=== PATIENT | male | born 1970 | race African-American/Black ===

== ENCOUNTER 2020-12-11 10:04 | Outpatient (CLI) | payer SELFPAY | END 2020-12-11 10:05 | disposition home or self-care (01) | LOC: WOUND 10:13 | PROVIDERS: Visit Provider Thoracic Surgery (Cardiothoracic Vascular Surgery) | DX: L97.822 Non-pressure chronic ulcer of other part of left lower leg with fat layer exposed (principal) | CPT/HCPCS: 11042; 11045; 87070; 87176; 87205; 99203 ==

== ENCOUNTER 2021-02-06 10:00 | Outpatient (CLI) | payer SELFPAY | END 2021-02-06 10:01 | disposition home or self-care (01) | LOC: WOUND 10:03 | PROVIDERS: Visit Provider Nurse Practitioner Family | DX: L97.821 Non-pressure chronic ulcer of other part of left lower leg limited to breakdown of skin (principal) | CPT/HCPCS: 87070; 87176; 87205; G0463 ==

== ENCOUNTER 2021-02-10 09:54 | Outpatient (CLI) | payer SELFPAY | END 2021-02-10 09:55 | disposition home or self-care (01) | LOC: WOUND 09:55 | PROVIDERS: Visit Provider Nurse Practitioner Family | DX: L97.822 Non-pressure chronic ulcer of other part of left lower leg with fat layer exposed (principal) | CPT/HCPCS: 11042; 11045 ==

== ENCOUNTER 2021-02-17 09:42 | Outpatient (CLI) | payer SELFPAY | END 2021-02-17 09:43 | disposition home or self-care (01) | LOC: WOUND 09:42 | PROVIDERS: Visit Provider Nurse Practitioner Family | DX: I73.9 Peripheral vascular disease, unspecified (principal); L97.822 Non-pressure chronic ulcer of other part of left lower leg with fat layer exposed | CPT/HCPCS: 11042; 11045 ==

== ENCOUNTER 2021-02-20 08:09 | Outpatient (CLI) | payer SELFPAY | END 2021-02-20 08:10 | disposition home or self-care (01) | LOC: WOUND 08:10 | PROVIDERS: Visit Provider Nurse Practitioner Family | DX: L97.822 Non-pressure chronic ulcer of other part of left lower leg with fat layer exposed (principal) | CPT/HCPCS: 29581 ==

== ENCOUNTER 2021-02-27 10:47 | Outpatient (CLI) | payer SELFPAY | END 2021-02-27 10:48 | disposition home or self-care (01) | LOC: WOUND 10:48 | PROVIDERS: Visit Provider Nurse Practitioner Family | DX: I73.9 Peripheral vascular disease, unspecified (principal); L97.822 Non-pressure chronic ulcer of other part of left lower leg with fat layer exposed | CPT/HCPCS: 11042 ==

== ENCOUNTER 2021-03-06 10:13 | Outpatient (CLI) | payer SELFPAY | END 2021-03-06 10:14 | disposition home or self-care (01) | LOC: WOUND 10:13 | PROVIDERS: Visit Provider Thoracic Surgery (Cardiothoracic Vascular Surgery) | DX: L97.822 Non-pressure chronic ulcer of other part of left lower leg with fat layer exposed (principal) | CPT/HCPCS: 29581 ==

== ENCOUNTER 2021-03-13 10:05 | Outpatient (CLI) | payer SELFPAY | END 2021-03-13 10:06 | disposition home or self-care (01) | LOC: WOUND 10:05 | PROVIDERS: Visit Provider Nurse Practitioner Family | DX: I73.9 Peripheral vascular disease, unspecified (principal); L97.822 Non-pressure chronic ulcer of other part of left lower leg with fat layer exposed | CPT/HCPCS: 11042 ==

== ENCOUNTER 2021-03-31 10:44 | Outpatient (CLI) | payer SELFPAY | END 2021-03-31 10:45 | disposition home or self-care (01) | LOC: WOUND 10:44 | PROVIDERS: Visit Provider Nurse Practitioner Family | DX: I73.9 Peripheral vascular disease, unspecified (principal); L97.822 Non-pressure chronic ulcer of other part of left lower leg with fat layer exposed | CPT/HCPCS: 11042; 11045 ==

== ENCOUNTER 2021-04-10 09:13 | Outpatient (CLI) | payer SELFPAY | END 2021-04-10 09:14 | disposition home or self-care (01) | LOC: WOUND 09:13 | PROVIDERS: Visit Provider Nurse Practitioner Family | DX: I73.9 Peripheral vascular disease, unspecified (principal); L97.822 Non-pressure chronic ulcer of other part of left lower leg with fat layer exposed | CPT/HCPCS: 11042 ==

== ENCOUNTER 2021-04-17 09:59 | Outpatient (CLI) | payer SELFPAY | END 2021-04-17 10:00 | disposition home or self-care (01) | LOC: WOUND 10:01 | PROVIDERS: Visit Provider Nurse Practitioner Family | DX: I73.9 Peripheral vascular disease, unspecified (principal); L97.822 Non-pressure chronic ulcer of other part of left lower leg with fat layer exposed | CPT/HCPCS: 11042 ==

== ENCOUNTER 2021-04-24 09:31 | Outpatient (CLI) | payer SELFPAY | END 2021-04-24 09:32 | disposition home or self-care (01) | LOC: WOUND 09:32 | PROVIDERS: Visit Provider Nurse Practitioner Family | DX: I73.9 Peripheral vascular disease, unspecified (principal); L97.821 Non-pressure chronic ulcer of other part of left lower leg limited to breakdown of skin | CPT/HCPCS: 11042 ==

== ENCOUNTER 2021-05-08 09:37 | Outpatient (CLI) | payer SELFPAY | END 2021-05-08 09:38 | disposition home or self-care (01) | LOC: WOUND 09:38 | PROVIDERS: Visit Provider Nurse Practitioner Family | DX: I73.9 Peripheral vascular disease, unspecified (principal); L97.821 Non-pressure chronic ulcer of other part of left lower leg limited to breakdown of skin | CPT/HCPCS: 11042 ==

== ENCOUNTER 2021-05-22 09:23 | Outpatient (CLI) | payer SELFPAY | END 2021-05-22 09:24 | disposition home or self-care (01) | LOC: WOUND 09:24 | PROVIDERS: Visit Provider Emergency Medicine | DX: I73.9 Peripheral vascular disease, unspecified (principal); L97.822 Non-pressure chronic ulcer of other part of left lower leg with fat layer exposed | CPT/HCPCS: 11042 ==

== ENCOUNTER 2021-06-05 09:03 | Outpatient (CLI) | payer SELFPAY | END 2021-06-05 09:04 | disposition home or self-care (01) | LOC: WOUND 09:04 | PROVIDERS: Visit Provider Nurse Practitioner Family | DX: I73.9 Peripheral vascular disease, unspecified (principal); L97.822 Non-pressure chronic ulcer of other part of left lower leg with fat layer exposed | CPT/HCPCS: 11042 ==

== ENCOUNTER 2021-06-19 09:16 | Outpatient (CLI) | payer SELFPAY | END 2021-06-19 09:17 | disposition home or self-care (01) | LOC: WOUND 09:16 | PROVIDERS: Visit Provider Emergency Medicine | DX: I73.9 Peripheral vascular disease, unspecified (principal); L97.822 Non-pressure chronic ulcer of other part of left lower leg with fat layer exposed | CPT/HCPCS: 11042 ==

== ENCOUNTER 2021-07-03 09:14 | Outpatient (CLI) | payer SELFPAY | END 2021-07-03 09:15 | disposition home or self-care (01) | LOC: WOUND 09:14 | PROVIDERS: Visit Provider Emergency Medicine | DX: I73.9 Peripheral vascular disease, unspecified (principal); L97.821 Non-pressure chronic ulcer of other part of left lower leg limited to breakdown of skin | CPT/HCPCS: 29581; A6021 ==

== ENCOUNTER 2025-05-27 17:23 | Emergency (ER) | payer OTHER, SELFPAY ==
--- OUTSIDE RECORDS SUMMARY | 2018-08-23 19:00 | XMS_ITS | Continuity of Care Document ---
Author Organization [employer] Address [address] [place] [address] Phone Care Team Providers Care Tank Hoop Bender Name Role Phone Julio César Dejesus MD Unavailable Unavailable Procedures Procedure Date OFFICE/OUTPATIENT VISIT, NEW Advance Directives Directive Yes / No Effective Date File Name No Information Encounters Encounter Description Practice Location Reason(s) For Visit Diagnoses Date Provider Providers Copied on Encounter OFFICE/OUTPAT IENT VISIT, [facility], [address], [place], [place], [id number], tel:[phone] Amadou Borden No Information Oleg Angela. [address], [facility], . tel:[phone] Referring Provider: Julio César Dejesus, [address] [place] [address], [facility]. tel:[phone] Family History Family Member Type Diagnosis Age At Onset No Information Payers Payer name Insurance type Covered republican ID Authoriza tion(s) No Information Social History Type Description Quantity Date Captured Comments Sex Male Smoking Status No Information Chief Complaint And Reason For Visit No Information Reason For Referral Reason For Referral No Information History Of Present Illness Encounter Date Complaint History Of Prese nt Illness No Information Functional Status Date Functional Assessmen t No Information Instructions Date Instruction Additional Infor mation No Information Assessments Type Assessment Date No Information Patient Care Teams Name Effective Dates (start - stop) Status Members No Information
[2025-05-27 17:55] VITALS: BP 146/99; PULSE 93; RESP 16; O2SAT 97
--- NOTE | 2025-05-27 18:49 | XRR_ITS ---
PROCEDURE INFORMATION: Exam: XR Right Hand Exam date and time: 05/27/2025 7:12 PM Age: 54 years old Clinical indication: Injury or trauma; Puncture; Dog bite to posterior aspect of right hand; Additional info: Animal bite TECHNIQUE: Imaging protocol: Radiologic exam of the right hand. Views: 3 or more views. COMPARISON: No relevant prior studies available. FINDINGS: Bones/joints: Normal. Soft tissues: Unremarkable. XR/XR hand RT min 3V* [id number] IMPRESSION: No acute findings.
--- NOTE | 2025-05-27 18:49 | W.ED.ANIMALB ---
HPI - Animal Bite General: Chief Complaint: Animal Bite Stated Complaint: rt hand animal bite Related Data Previous Rx's ?Medication ?Instructions ?Recorded sulfamethoxazole 800 1 tab PO BID #14 tabs 01/15/25 mg-trimethoprim 160 mg tablet (Bactrim DS) Allergies Allergy/AdvReac Type Severity Reaction Status Date / Time Alpha-Gal Allergy Mild Unknown Verified 01/15/25 09:44 (Dtpuskqpk-Loast-1,3-Gala iron dextran complex Allergy Mild Unknown Verified 01/15/25 09:44 Penicillins Allergy Mild Unknown Verified 01/15/25 09:44 Course Vital Signs: Vital signs: Vital Signs Pulse Rate 93 05/27/25 17:55 Respiratory Rate 16 05/27/25 17:55 Blood Pressure 146/99 05/27/25 17:55 Pulse Oximetry 97 05/27/25 17:55 Oxygen Delivery Me thod Room Air 05/27/25 17:55 Discharge Plan Discharge Condition: Stable Prescriptions: No Action sulfamethoxazole-trimethoprim [Bactrim DS] 800-160 mg tablet 1 tab PO BID Qty: 14 0RF Print Language: Georgian Coding Level of Care Code ED Sewage Screen Operator for Felipe Yu
[2025-05-27] MEDS: HYDROcodone-acetaminophen 7.5-325 mg Tablet 1 TAB PO (20:20)
[2025-05-27] MEDS: tetanus-dipt-pertussis 0.5 mL SDV IM (21:12)
[2025-05-27] MEDS: lidocaine-epi 2% 20 mL INJ INJECTION (21:13)
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
--- OUTSIDE RECORDS SUMMARY | 2025-05-30 07:52 | XMS_ITS | Clinical Summary ---
Author Organization [facility] [address] [id number] Care Team Providers Care Custody Officer Name Role Phone Unavailable Primary Care Provider Unavailabl e Allergies Active Allergy Reactions Criticality Noted Date Comments Iron Dextran Anaphylaxis High 06/13/2024 Penicillins Rash Low 03/27/2024 Medications hydroCHLOROthia zide 25 mg tablet Take 50 mg by mouth 2 times daily. States takes 2 tablets twice a day Active LISINOPRIL ORAL Take by mouth. Active pantoprazole (PROTONIX) 40 mg Tablet, Delayed Release (E.C.) Take 40 mg by mouth daily. 05/04/2024 Active ferrous fumarate (FERRETTS) 325 mg (106 mg iron) Tablet Take 325 mg by mouth. Active cholecalciferol 1,250 mcg (50,000 unit) Capsule Take 1 Capsule (50,000 Units) by mouth every 7 days. 12 Capsule 07/12/2024 Active Active Problems Problem Noted Date Diagnosed Date Acute hypoxic respiratory failure 04/09/2024 Small intestinal hemorrhage 04/09/2024 Pulmonary embolus 04/09/2024 Hemorrhagic shock 04/08/2024 Acute deep vein thrombosis (DVT) of left upper e xtremity 04/07/2024 C. 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, limited to breakdown of skin 03/27/2024 Acute lower GI bleeding 03/27/2024 Left leg cellulitis 03/27/2024 Encounters Date Type Department Care Team Description 05/02/2025 External Device Data [facility] ABSTRACTION Provider, Abstract 05/02/2025 External Device Data [facility] ABSTRACTION Provider, Abstract 05/02/2025 External Device Data [facility] ABSTRACTION Provider, Abstract 05/01/2025 External Device Data [facility] ABSTRACTION Provider, Abstract 04/10/2025 External Device Data [facility] ABSTRACTION Provider, Abstract 04/03/2025 External Device Data [facility] ABSTRACTION Provider, Abstract 03/20/2025 External Device Data [facility] ABSTRACTION Provider, Abstract 03/20/2025 External Device Data [facility] ABSTRACTION Provider, Abstract 03/13/2025 External Device Data [facility] ABSTRACTION Provider, Abstract 03/13/2025 External Device Data [facility] ABSTRACTION Provider, Abstract 03/13/2025 External Device Data [facility] ABSTRACTION Provider, Abstract 03/08/2025 External Device Data [facility] ABSTRACTION Provider, Abstract 03/07/2025 External Device Data [facility] ABSTRACTION Provider, Abstract 02/28/2025 11:27 AM CDT - 02/28/2025 11:59 PM CDT Hospital Encounter 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 Pulse 86 12/19/2024 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 [facility] [address] [place] [address] Fior Lazo NP [address] [facility] [address] [place] [address] 03/05/2026 1:20 PM CDT Initial consult [facility] [address] [facility] [address] [place] [address] Orquidea Brewster, ICU RN [address] [place] [address] Health Maintenance Due Date Last Done Comments Pre-Diabetes and Diabetes Screening 1970 DTAP/TDAP/TD VACCINES (1 - Tdap) 1990 HEPATITIS B VACCINES (1 of 3 - 19+ 3-dose series) 1990 FIT-DNA Q 3 years 2016 FIT/FOBT Q 1 year 2016 Flex Sig/CT Colonography Q 5 years 2016 ZOSTER VACCINE (1 of 2) 2021 INFLUENZA VACCINE (#1) 2025 COLORECTAL SCREENING 04/03/2034 04/03/2024, 04/03/20 Colorectal Cancer Screening 04/03/2034 Medical Devices Implanted Type Area Director Of Nurses Registry Device Identifier Shelf Expiration Date Model / Serial / Lot Starclose Se Vasc Closure 79249-07 - [id number] Implanted:Qty: 1 on 04/08/2024 by Bert Salazar MD at [facility] Closure Device Right: Groin TRIVEDI- VASC DEVICE [id number] 08/18/2025 [id number] / / [id number] Procedures Procedure Name Priority Date/Time Associated Diagnosis Comments US VENOUS DOPPLER LEG LEFT Routine 02/28/2025 12:13 PM CDT Acute deep vein thrombosis (DVT) of proximal vein of left lower extremity (CMS/HCC) COLONOSCOPY REPORT 04/03/2024 2: 58 PM CDT from Last 3 Months or Most Recently Relevant to Health Maintenance Results * US VENOUS DOPPLER LEG LEFT (02/28/2025 12:13 PM CDT) Anatomical Region Laterality Modality Lower Extremity Ultrasound 02/28/2025 11:5 1 AM CDT Narrative 03/01/2025 7:[address] [facility] Radiology Services - Noninvasive Vascular [address] [address] Noninvasive Vascular Lab Venous Exam Unilateral Lower Extremity Duplex Patient: Pb Langley Study ID: [id number] Gender: M : 1970 Age: 54 Room: Height: Weight: BSA: Pt status: Outpatient Study Date: 02/28/2025 Study Time: 11:51:59 AM BSA: Ordering: Joey Tapia MD, RPVI Interpreting:Cole Crook Body Joiner: Bushra Hale History: Left lower extremity pain. Swelling of the left lower extremity. Swelling of the left lower extremity. PMH: Deep vein thrombosis. The POP vein is partially compressible. Partial flow. DVT still present in POP vein. Summary Impression: There is no evidence of deep or superficial venous thrombosis involving the right lower extremity and left common femoral vein. However there is a DVT in left POP V thats partially compressible. Study data: Left lower extremity venous duplex evaluation. Doppler flow study including spectral analysis, color and tucker scale imaging. Location: Vascular laboratory. Patient status: Outpatient. Study status: Routine. Procedure: A vascular evaluation was performed. Image quality was good. Prepared and Electronically Authenticated Cole Crook Confirmed 03/01/2025 07:34 Procedure Note Cole Crook MD - 03/01/[address] [facility] Radiology Services - Noninvasive Vascular [address] [facility] [address] [place] [address] Noninvasive Vascular Lab Venous Exam Unilateral Lower Extremity Duplex Patient: Pb Langley Study ID: [id number] Gender: M : 1970 Age: 54 Room: Height: Weight: BSA: Pt status: Outpatient Study Date: 02/28/2025 Study Time: 11:51:59 AM BSA: Ordering: Joey Tapia MD, RPVI Interpreting:Cole Crook Body Joiner: Bushra Hale History: Left lower extremity pain. Swelling of the left lowerextremity. Swelling of the left lower extremity. PMH: Deep vein thrombosis. ThePOP vein is partially compressible. Partial flow. DVT still present in POPvein. Summary Impression: There is no evidence of deep or superficial venous thrombosis involvingthe right lower extremity and left common femoral vein. However there is a DVTin left POP V thats partially compressible. Study data: Left lower extremity venous duplex evaluation. Dopplerflow study including spectral analysis, color and tucker scale imaging.Location: Vascular laboratory. Patient status: Outpatient. Study status:Routine. Procedure: A vascular evaluation was performed. Image quality wasgood. Prepared and Electronically Authenticated Cole Crook Confirmed 03/01/2025 07:34 Joey Tapia MD ORDERABLES Final Result * COLONOSCOPY REPORT (04/03/2024 2:58 PM CDT) Narrative Procedure Note Mesfin Green MD - 04/03/2024 2:58 PM CDT [facility] GI Patient Name: Pb Langley Procedure Date: 04/03/2024 Date of : 1970 Admit Type: Outpatient Age: 53 Attending MD: Mesfin Green MD, Procedure: Colonoscopy Indications: Hematochezia Providers: Mesfin Green MD Referring MD: Medicines: Monitored Anesthesia Care Complications: No immediate complications. Procedure: Pre-Anesthesia Assessment: - Prior to the procedure, a History and Physical was performed, and patient medications and allergies were reviewed. The patient's tolerance of previous anesthesia was also reviewed. The risks and benefits of the procedure and the sedation options and risks were discussed with the patient. All questions were answered, and informed consent was obtained. Prior Anticoagulants: The patient has taken no anticoagulant or antiplatelet agents. ASA Grade Assessment: III - A patient with severe systemic disease. After reviewing the risks and benefits, the patient was deemed in satisfactory condition to undergo the procedure. After I obtained informed consent, the scope was passed under direct vision. Throughout the procedure, the patient's blood pressure, pulse, and oxygen saturations were monitored continuously. The Colonoscope was introduced through the anus and advanced to the terminal ileum, with identification of the appendiceal orifice and IC valve. The colonoscopy was performed without difficulty. The patient tolerated the procedure well. The quality of the bowel preparation was good. The terminal ileum, ileocecal valve, appendiceal orifice, and rectum were photographed. Estimated Blood Loss: Estimated blood loss: none. Findings: The terminal ileum appeared normal. Internal hemorrhoids were found during retroflexion. The hemorrhoids were small. The exam was otherwise without abnormality. There is no endoscopic evidence of bleeding in the entire colon. Impression: - The examined portion of the ileum was normal. - Internal hemorrhoids. - The examination was otherwise normal. - No specimens collected. Recommendation: -Return patient to hospital floor for ongoing care -Resume previous diet -If further evidence of GI bleeding, would recommend capsule endoscopy. Mesfin Green MD 04/03/2024 2:57:45 PM Number of Addenda: 0 Note Initiated On: 04/03/2024 2:21 PM Scope Withdrawal Time 0 hours 7 minutes 11 seconds Scope In: 2:42:59 PM Scope Out: 2:53:36 PM [address] [place], [place] Mesfin Green MD GI PROCEDURE ORDERA BLES Final Result from Last 3 Months or Most Recently Relevant to Health Maintenance Insurance [facility] [id number] Advance Directives For more information, please contact: [phone] * Full Code (Latest Code Status on File) Date Activated Date Inactivated Comments 03/27/2024 5:45 PM 04/10/2024 1:00 PM
== END 2025-05-27 21:13 | disposition home or self-care (01) ==
PROVIDERS: Emergency Provider Physician Assistant
DX: S61.451A Open bite of right hand, initial encounter (principal); W54.0XXA Bitten by dog, initial encounter
CPT/HCPCS: 73130; 90471; 90715; 99283; J9999